=== PATIENT | female | born 1955 | race Asian ===

== ENCOUNTER → 2016-09-16 | Day surgery (SDC) | payer BC ==
[2016-09-16] VITALS (14 sets, daily range): BP systolic 106–140; BP diastolic 58–75
[~2016-09-16] VITALS: Ht 154.9 cm; Wt 59.9 kg
[~2016-09-16] MED LIST: AMLODIPINE BESY10 MG ORAL; Bupivacaine 0.25% Inj 30ml INJ ONE; Bupivacaine w/Epi 0.25% 30ml Vial INJ ONE; Duramorph PF 10mg/10ml amp IV ONE; EPINEPHrine 1mg/1ml Amp ONE; Kenalog-40 1ml Vial ONE; Ketorolac 30mg Inj ONE; LR 1000ml ONE; Lidocaine 1% 10mg/ml/Epi 0.005mg/ml 30ml vial INJ ONE; Lidocaine 1% MPF 10mg/ml 5ml ONE; Metoclopramide 10mg/2ml Inj ONE; Midazolam 2mg/2ml Inj ONE; Morphine Sulfate PF 10 ML ONE; NS Irrig 4000ml IRRIG ONE; Propofol 10mg/ml 20ml IV ONE; Sterile Water Irrig 1000ml IRRIG ONE; ceFAZolin 1gm/50ml Premix 50 ML IV ONE; celeBREX 200mg Cap **SURGERY PATIENTS ONLY ORAL ONE; ePHEDrine 50mg/ml Inj ONE; fentaNYL 100 mcg/2 mL IV ONE; fentaNYL 100 mcg/2 mL IV PRN; oxyCONTIN 20mg tab ORAL ONE
--- NOTE | 2016-09-16 07:13 | Pre-Procedure Note/Attestation ---
Pre-Procedure Note/Attestation Complete Prior to Procedure Planned Procedure: right Procedure Narrative: knee arthroscopy, possible menisectomy, possible synovectomy Indications for Procedure Pre-Operative Diagnosis: left knee internal derangement Attestation I attest that I discussed the nature of the procedure; its benefits; risks and complications; and alternatives (and the risks and benefits of such alternatives ), prior to the procedure, with the patient (or the patient's legal technical service representative). I attest that, if there was a reasonable possibility of needing a blood transfusion, the patient (or the patient's legal technical service representative) was given the [facility] standardized written summary, pursuant to the [place] Blood Safety Act ([place] Health and Safety Code # 1645, as amended). I attest that I re-evaluated the patient just prior to the surgery and that there has been no change in the patient's H&P, except as documented below: CORNELIUS JORGE Sep 16, 2016 07:13
--- NOTE | 2016-09-16 07:14 | Operative Note - PDOC ---
Operative Note Operative Note Pre-op Diagnosis: left knee internal derangement Procedure: left knee arthroscopy Post-op Diagnosis: same as pre-op plus Operative Findings: consistent w/pre-op dx studies Anesthesia: MAC Specimen: none Complications: none Condition: stable Estimated Blood Loss: none Implant(s) used?: CORNELIUS Gould Sep 16, 2016 07:14
--- NOTE | 2016-09-16 07:25 | Anethesia Preoperative Eval ---
Anesthesia Pre-op PMH/ROS General Date of Evaluation: Sep 16, 2016 Time of Evaluation: 07:00 Anesthesiologist: miriam ASA Score: ASA 2 Mallampati Score Class I : Soft palate, uvula, fauces, pillars visible Class II: Soft palate, uvula, fauces visible Class III: Soft palate, base of uvula visible Class IV: Only hard plate visible Mallampati Classification: Class II Surgeon: mccall Diagnosis: meniscus tear Surgical Procedure: Right Knee arthoscopy Anesthesia History: none Family History: no anesthesia problems Allergies: Coded Allergies: No Known Allergies (Unverified , 09/15/16) Medications: see eMAR Past Medical History Cardiovascular: Reports: HTN Pulmonary: Denies: COPD, CAIN, asthma, other Gastrointestinal/Genitourinary: Denies: CRI, ESRD, GERD, other Neurologic/Psychiatric: Reports: depression/anxiety Endocrine: Denies: DM, hypothyroidism, other, steroids HEENT: Denies: MARY'S IGLOO (L), MARY'S IGLOO (R), cataract (L), cataract (R), glaucoma, other Hematology/Immune: Denies: DVT, anemia, bleeding disorder, other Musculoskeletal/Integumentary: Denies: DDD, DJD, OA, RA, edema, other PSxH Narrative: none Anesthesia Pre-op Phys. Exam Physician Exam Last Vital Signs Date Time Temp Pulse Resp B/P Pulse Ox O2 Delivery O2 Flow Rate FiO2 09/16/16 06:13 97.8 80 18 126/71 97 Room Air Constitutional: NAD Neurologic: CN 2-12 intact Cardiovascular: RRR Respiratory: CTA Gastrointestinal: S/NT/ND Airway Exam Mallampati Classification 2 Mallampati Score: Class II MO: full Neck: thin ROM: full Dentures: no lower, no upper Anesthesia Pre-op A/P Studies Pre-op Studies: EKG - SR Risk Assessment & Plan Plan: General Status Change Before Surgery: No Pre-Antibiotics Drug: ancef Given Within 1 Hr of Incision: Yes Time Given: 07:30 JAMEEL RANDOLPH CRNA Sep 16, 2016 07:25
--- NOTE | 2016-09-16 09:10 | Immediate Post-Op Evaluation ---
Immediate Post-Op Evalulation Immediate Post-Op Evalulation Procedure: right knee scope Date of Evaluation: Sep 16, 2016 Time of Evaluation: 08:30 IV Fluids: 500 Blood Pressure Systolic: 114 Blood Pressure Diastolic: 75 Pulse Rate: 86 Respiratory Rate: 14 Temperature (Fahrenheit): 97.1 Nausea: No Vomiting: No Complications none Patient Status: awake, reacts, patent Drug: ancef Given Within 1 Hr of Incision: Yes Time Given: 07:30 JAMEEL RANDOLPH CRNA Sep 16, 2016 09:10
--- NOTE | 2016-09-16 09:11 | 48 Hour Post Anesthesia Eval ---
Post Anesthesia Evaluation Procedure: right knee scope Date of Evaluation: Sep 16, 2016 Time of Evaluation: 09:10 Blood Pressure Systolic: 131 0: 70 Pulse Rate: 75 O2 Sat by Pulse Oximetry: 99 Airway: patent Nausea: No Vomiting: No Hydration Status: adequate Mental Status/LOC: patient returned to baseline Post-Anesthesia Complications: none JAMEEL RANDOLPH CRNA Sep 16, 2016 09:11
--- NOTE | 2016-09-16 18:48 | Operative Note - Dictated ---
DATE OF OPERATION: 09/16/2016 POSTOPERATIVE DIAGNOSES: 1. Right knee medial meniscus tear. 2. Right knee chondral damage. POSTOPERATIVE DIAGNOSES: 1. Right knee tear posterior horn medial meniscus. 2. Right knee medial and patellofemoral compartment chondral damage. 3. Hypertrophic synovial tissue in medial and lateral patellofemoral compartment. PROCEDURES: 1. Right knee arthroscopic partial medial meniscectomy. 2. Synovectomy of medial and lateral patellofemoral compartment. 3. Gentle chondroplasty of patellofemoral and medial compartment. SURGEON: Juan Engle M.D. ANESTHESIA: MAC with local. INDICATION FOR PROCEDURE: The patient is a 61-year-old female, who has been having right knee pain. She had actually showed some arthritis as well as MRI, which showed meniscal pathology. She had localized pain in the medial joint line and elected to undergo right knee arthroscopic partial medial meniscectomy. Risks, limitations, expectations, and complications of the procedure were discussed in detail including the fact that the surgery would improve pain from the meniscus, but not from the arthritis. Additional risks and limitations including infection, neurovascular damage, risk of anesthesia, medical complications, need for future surgery, etc., were discussed in detail. All questions were addressed. DESCRIPTION OF PROCEDURE: An informed consent was obtained. The patient was taken to the operative room and placed under monitored anesthesia control. Tourniquet was applied to the right proximal thigh. Right leg was prepped and draped in a sterile manner. Time-out was performed. Ancef was administered. Under sterile conditions, 20 mL of 0.25% Marcaine plain injected into the right knee. The ports sites were injected with 1% lidocaine with epinephrine. Inferolateral stab incision was then made. Trocar was introduced into the glenohumeral joint. Systematic tour towards the knee was performed. There is hypertrophic synovial tissue in the retropatellar space area. Medial compartment was entered. Hypertrophic synovial tissue medial working portal was established. Synovectomy of medial component was performed at the visualized medial compartment. There was a tear of the posterior horn medial meniscus with a displaced flap. Partial meniscectomy of the posterior horn extending to the mid body was performed. Gentle chondroplasty was also performed with evidence of grade 3 chondral damage. Once that was completed, intercondylar notch was entered. There was hypertrophic ligamentum mucosa, which was debrided, visualized the anterior cruciate ligament, which is probed and noted to be intact. Lateral compartment was entered free of any meniscal chondral damage. At this point, the camera was placed in the retropatellar space area and the synovectomy was completed. Once that was done, the camera was removed. In the patellofemoral compartment, there was grade 2 to grade 3 chondral damage in the patellofemoral compartment and trochlear groove. At this point, the camera was removed. Portal sites were closed with 3-0 Monocryl sutures. Intraarticular injection containing 0.25% Marcaine with epinephrine, 30 mg of Toradol, 5 mL of Duramorph, and 40 mg of Kenalog was injected. Compression dressing was applied. The patient was awoken and taken to recovery room with stable vital signs. ESTIMATED BLOOD LOSS: Minimal. COMPLICATIONS: None. SPECIMENS: None. IMPLANTS: None. Juan Engle M.D. DR: TJ JOB#: [id number] CC: [id number]
== END | disposition home or self-care (01) ==
LOC: SUR 05:25 → EDBD 07:30
DX: M23.221 Derangement of posterior horn of medial meniscus due to old tear or injury, right knee (principal); M67.261 Synovial hypertrophy, not elsewhere classified, right lower leg; M94.9 Disorder of cartilage, unspecified; I10 Essential (primary) hypertension; F32.9 Major depressive disorder, single episode, unspecified; F41.9 Anxiety disorder, unspecified
CPT/HCPCS: 29876; 29881; 97161; J0171; J0690; J1885; J2250; J2274; J2405; J2704; J2765; J3010; J3301; J3490; J7120; 94003; 94150